=== PATIENT | female | born 1940 | race Caucasian/White ===

== ENCOUNTER 2022-09-04 10:16 | Emergency (ER) | payer MEDICARE, SELFPAY ==
[2022-09-04 10:16] VITALS: BP 134/67; PULSE 92; RESP 17; TEMP 36.6; O2SAT 96; BMI 24.5
[2022-09-04 10:23] VITALS: BMI 24.5
--- NOTE | 2022-09-04 10:24 | CT_ITS ---
FINAL REPORT TECHNIQUE: Noncontrast exam CLINICAL HISTORY: FALL, FINDINGS: There is moderate atrophy. There are chronic microvascular changes. No abnormal density is seen. Ventricles are normal. There is no hemorrhage. No mass effect is seen. Bone windows show no evidence of fracture. IMPRESSION: Moderate atrophy and chronic microvascular changes. No acute findings Reviewed, Interpreted and Dictated by Kim Thomas MD Transcribed by Tamika Robledo Authenticated and [facility]
--- NOTE | 2022-09-04 10:24 | XR_ITS ---
FINAL REPORT CLINICAL HISTORY: FALL, ARM PAIN FINDINGS: RIGHT HUMERUS 2 views were obtained. There is no acute fracture or dislocation. The joint spaces are intact. There is no soft tissue abnormality. IMPRESSION: No acute bony abnormality. Reviewed, Interpreted and Dictated by Kim Thomas MD Transcribed by Tamika Robledo Authenticated and [facility]
--- NOTE | 2022-09-04 10:24 | XR_ITS ---
FINAL REPORT CLINICAL HISTORY: FALL, LACERATION TO FOREARM, ARM PAIN FINDINGS: RIGHT FOREARM 2 views were obtained. There is no acute fracture or dislocation. The joint spaces are intact. There is no soft tissue abnormality. IMPRESSION: No acute bony abnormality. Reviewed, Interpreted and Dictated by Kim Thomas MD Transcribed by Tamika Robledo Authenticated and [facility]
[2022-09-04 10:30] VITALS: BP 134/67; PULSE 87; O2SAT 97
--- NOTE | 2022-09-04 10:41 | PC.NURSE ---
PT TO CT AT THIS TIME
[2022-09-04 10:42] LABS: Basophils % 0.5 % (0.1-2.0); Eosinophils % 0.2 % (0.1-12.0); Hematocrit 36.7 % (37.0-47.0); Hemoglobin 11.1 g/dL (12.2-16.2); Lymphocytes # 0.3 K/mm3 (0.7-4.5); Lymphocytes % 10.2 % (10-50); Mean Corpuscular HGB Conc 30.3 g/dL (31.8-35.4); Mean Corpuscular Hemoglobin 31.8 pg (27.0-31.2); Mean Corpuscular Volume 104.9 fl (81-99); Mean Platelet Volume 9.2 fl (7.4-10.4); Monocytes # 0.3 K/mm3 (0.1-1.0); Monocytes % 8.8 % (1.7-9.3); Neutrophils # 2.7 K/mm3 (1.8-7.8); Neutrophils % 80.2 % (37.0-80.0); Platelet Count 168 K/mm3 (142-424); Red Cell Distribution Width 16.5 % (11.5-17.5); White Blood Count 3.4 K/mm3 (4.8-10.8)
[2022-09-04 10:45] LABS: Alanine Aminotransferase 220 U/L (12-78); Albumin Level 3.5 g/dl (3.5-5.0); Alkaline Phosphatase 261 U/L (38-126); Anion Gap 15.8 mEq/L (5-15); Aspartate Amino Transferase 308 U/L (14-36); Bilirubin,Total 3.2 mg/dl (0.2-1.3); Blood Urea Nitrogen 25 mg/dl (7-17); Calcium 9.5 mg/dl (8.4-10.2); Carbon Dioxide 15 mmol/L (22.0-30.0); Chloride 109 mmol/L (98-107); Creatinine Clearance Estimated 35 mL/min (50-200); Estimated Glomerular Filt Rate 47 ml/min (>60); GFR (African American) 57 ML/MIN (>60); Globulin 3.6 g/dL (1.3-3.2); Glucose 147 mg/dl (74-100); Potassium 4.8 mmoL/L (3.5-5.1); Sodium 135 mmol/L (136-145); Total Protein,Serum 7.1 g/dl (6.3-8.2)
--- NOTE | 2022-09-04 10:49 | PC.NURSE ---
PT RETURNED FROM CT
--- NOTE | 2022-09-04 10:52 | PC.NURSE ---
DR. GOSS AT BEDSIDE
--- NOTE | 2022-09-04 11:04 | HMH.EDGENADL ---
Discharge Plan Disposition Patient Disposition: Home, Self-Care Condition: Fair Chief Complaint: Fall Prescriptions Prescriptions: No Action gabapentin 600 mg Tablet 600 mg PO DAILY famotidine [Pepcid] 20 mg Tablet 20 mg PO BID metoclopramide HCl [Reglan] 5 mg Tablet 5 mg PO DAILY metformin 1,000 mg Tablet 1,000 mg PO BID glimepiride 4 mg Tablet 4 mg PO DAILY digoxin 125 mcg (0.125 mg) Tablet 125 mcg PO DAILY albuterol 90 mcg/actuation Aerosol 90 mcg INHALATION DAILY duloxetine 30 mg Capsule,Delayed Release(Dr/Ec) 30 mg PO BID levothyroxine 88 mcg Capsule 88 mcg PO DAILY omeprazole magnesium 20 mg Capsule,Delayed Release(Dr/Ec) 20 mg PO BID Trelegy Ellipta 200-62.5-25 mcg Blister With Device 1 inh INHALATION DAILY magnesium oxide 400 mg magnesium Capsule 400 mg PO BID Activity Restrictions/Add. Instructions Additional Instructions/Restrictions: Decreased dosage of metformin to 500 mg in the evening only. Do not take glipizide, do not take Tresiba. You will receive a call from [facility] for surgery clinic appointment this . If your appointment with Dr. Solorio conflicts with the surgery clinic appointment, please reschedule with Dr. Acosta for a different time this week. Clinical Impressions Clinical Impression: Hypoglycemia, Bile duct obstruction, Pancreatic duct obstruction, Dilated gallbladder Instructions Patient Instructions: DI for Hypoglycemia Discharge ED Provider: John Valentin General Adult HPI General Chief complaint: Fall Stated complaint: FALL Time Seen by Provider: 09/04/22 10:47 History of Present Illness HPI narrative: The patient is brought in by ambulance. History obtained from patient and family. Patient states that she passed out trying to get out of bed. Family states they found her unresponsive on the floor by her bed this morning. She was able to nod her head but could not move or get up. EMS was called and found her blood sugar to be 25 and she was administered D50 with improvement in her condition. She currently says that she has some soreness in her right arm, apparently from the fall, but denies any other current complaints except that she has not felt well for 6 to 7 months. Family states that she has fallen several times, has been confused and has been declining in function for the past couple of months since . She has been hospitalized at [facility] twice because of this. They said the last time she was in her blood sugar was very high and it took all day to get it down. They state that she had been having problems breathing and had pneumonia and was treated with steroids and it was felt her blood sugar was elevated because of that. They state she previously has been on Tresiba injections, but they did not know whether she was actually using it. Her primary care provider changed her to Lantus, but she had an allergic reaction to it. Primary care provider told him to go back to using Tresiba. They started her back on it 2 days ago. They have not been checking her blood sugar. Family states that the patient had been living on her own but has moved in with them recently because of her daughter declining condition. 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 Related Data Home Medications Medication Instructions Recorded Confirmed albuterol 90 mcg/actuation aerosol 90 mcg inhalation DAILY Breathing 09/04/22 09/04/22 inhaler problems digoxin 125 mcg (0.125 mg) tablet 125 mcg PO DAILY Heart rhythm 09/04/22 09/04/22 duloxetine 30 mg capsule,delayed 30 mg PO BID Depression 09/04/22 09/04/22 release famotidine 20 mg tablet (Pepcid) 20 mg PO BID GERD 09/04/22 09/04/22 fluticasone fur. 200 mcg-umeclid 1 inh inhalation DAILY Breathing 09/04/22 09/04/22 62.5 mcg-vilant 25 mcg problems inhalat.powder
[2022-09-04 11:08] LABS: Troponin I < 0.01 ng/ml (0.00-0.034)
[2022-09-04 11:12] LABS: Magnesium 1.8 mg/dl (1.6-2.3)
--- NOTE | 2022-09-04 11:29 | XR_ITS ---
FINAL REPORT CLINICAL HISTORY: syncope FINDINGS: PORTABLE CHEST The heart is normal in size. The mediastinum is unremarkable. There are changes of emphysema. There is old calcified granulomatous disease. There is no pneumothorax. IMPRESSION: No acute process. Reviewed, Interpreted and Dictated by Kim Thomas MD Transcribed by Tamika Robledo Authenticated and [facility]
[2022-09-04 11:32] VITALS: BP 140/74; PULSE 90; O2SAT 97
--- NOTE | 2022-09-04 11:39 | PC.NURSE ---
PT ASSISTED TO BSC FOR UA COLLECTION. ATTENDS CHANGED AND ROXANE-CARE PROVIDED. PT AMBULATED WITH ASSIST X 1
--- NOTE | 2022-09-04 11:49 | PC.NURSE ---
XR AT BEDSIDE
[2022-09-04 11:51] LABS: Microscopic, Urine URINE MICROSCOPIC (MICROSCOPIC)
[2022-09-04 11:56] LABS: Appearance,Urine CLEAR (Clear); Blood, Urine Negative (Negative); Color,Urine AMBER (Yellow); Glucose,Urine (UA) TRACE (Negative); Ketones,Urine Negative (Negative); Leukocyte Esterase,Urine TRACE (Negative); Nitrate,Urine Negative (Negative); Protein,Urine 2+ (Negative); Specific Gravity, Urine 1.025 (1.005-1.030); Urobilinogen,Urine 0.2 EU/dl (0.2)
--- NOTE | 2022-09-04 11:58 | PC.NURSE ---
DR. GOSS SPEAKING WITH PT'S PCP
--- NOTE | 2022-09-04 11:58 | PC.NURSE ---
Called Dr Solorio in [facility] for Dr Valentin to consult on patient.
[2022-09-04 12:00] VITALS: BP 142/79; PULSE 84; O2SAT 98
[2022-09-04 12:02] LABS: Bilirubin,Urine 2+ (Negative)
--- NOTE | 2022-09-04 12:04 | CT_ITS ---
FINAL REPORT TECHNIQUE: Oral and IV contrast enhanced exam. Axial images through the abdomen and pelvis were performed. This study was performed with techniques to keep radiation doses as low as reasonably achievable (ALARA). Individualized dose reduction techniques using automated exposure control or adjustment of mA and/or kV according to the patient's size were employed. CLINICAL HISTORY: elev LFTs FINDINGS: Abdomen: Lung bases are clear. There is severe intrahepatic and extrahepatic biliary duct dilatation with abrupt truncation of the dilated common bile duct within the pancreatic head. There is severe pancreatic ductal dilatation. The gallbladder is severely distended. There is minimal ascites in the upper abdomen. There is left adrenal enlargement, probably hyperplasia. There is a right renal cyst. The remaining solid organs are unremarkable. There is mild mesenteric adenopathy. A right sided ostomy is present. No bowel obstruction. Pelvis: The appendix is not visualized. Pelvic bowel loops are unremarkable. The uterus is unremarkable. There is a trace amount of free fluid. There is soft tissue fullness in the rectum which could represent a mass. IMPRESSION: High-grade biliary and pancreatic ductal obstruction occurring at the level of pancreatic head. No well-defined mass is seen although malignant etiology is suspected. Consider MRCP. Minimal ascites and mild adenopathy. Soft tissue fullness in the rectum raising question of a mass. Reviewed, Interpreted and Dictated by Kim Thomas MD Transcribed by Tamika Robledo Authenticated and [facility]
--- NOTE | 2022-09-04 12:05 | US_ITS ---
FINAL REPORT TECHNIQUE: Multiple transverse and longitudinal images CLINICAL HISTORY: elev LFTs FINDINGS: Severe intrahepatic and extrahepatic biliary duct dilatation extending to the level of the pancreas. Distended gallbladder. Probable cholelithiasis. Trace amount of ascites in the upper abdomen. Known pancreatic duct dilatation not well demonstrated on this exam. IMPRESSION: High-grade biliary obstruction with distended gallbladder. Recommend MRCP. Reviewed, Interpreted and Dictated by Kim Thomas MD Transcribed by Juanito Cotton Authenticated and . [facility]
[2022-09-04 12:10] LABS: Amorphous Sediment,Urine 1+ /lpf; Bacteria,Urine Trace /lpf; RBC,Urine Occasional #/hpf (0-3)
--- NOTE | 2022-09-04 12:23 | PC.NURSE ---
DR. GOSS SPEAKING WITH FAMILY ABOUT POC
--- NOTE | 2022-09-04 12:23 | PC.NURSE ---
PT TO CT AT THIS TIME
--- NOTE | 2022-09-04 12:29 | PC.NURSE ---
PT RETURNED FROM CT. U/S AT BEDSIDE
--- NOTE | 2022-09-04 12:51 | PC.NURSE ---
ultrasound staff gave ER verbal report
[2022-09-04 13:05] LABS: Lipase 748 U/L (23-300)
--- NOTE | 2022-09-04 13:06 | PC.NURSE ---
Faisal from lab called critical on patient. Lipase 748, repeated and verified.
--- NOTE | 2022-09-04 13:34 | PC.NURSE ---
FAMILY AND PT UPDATED AT THIS TIME
--- NOTE | 2022-09-04 13:39 | PC.NURSE ---
DR GOSS SPEAKING WITH DR. HEARD
--- NOTE | 2022-09-04 13:50 | PC.NURSE ---
[facility] CALLED AT THIS TIME FOR CONSULT, IMAGES POWER SHARED TO [facility]
--- NOTE | 2022-09-04 14:01 | PC.NURSE ---
DR. GOSS SPEAKING WITH [facility]
[2022-09-04 14:26] LABS: INR 0.97 (0.9-1.1); Prothrombin Time 10.5 seconds (10.1-12.5)
[2022-09-04 14:45] LABS: Troponin I < 0.01 ng/ml (0.00-0.034)
[2022-09-04 15:10] VITALS: BP 142/79; PULSE 80; RESP 18; TEMP 36.7; O2SAT 95
== END 2022-09-04 15:10 | disposition home or self-care (01) ==
PROVIDERS: Emergency Provider Emergency Medicine; PCP Family Medicine
DX: E16.2 Hypoglycemia, unspecified (principal); K83.1 Obstruction of bile duct; K82.8 Other specified diseases of gallbladder; M79.601 Pain in right arm; W19.XXXA Unspecified fall, initial encounter
CPT/HCPCS: 36415; 70450; 71045; 73060; 73090; 74177; 76705; 80053; 80162; 81001; 83690; 83735; 84484; 85025; 85610; 99285; Q9967

== ENCOUNTER 2022-09-29 15:10 | Emergency (ER) | payer MEDICARE, SELFPAY ==
[2022-09-29 15:59] VITALS: BMI 17.8
[2022-09-29 16:00] VITALS: BP 146/78; PULSE 92; RESP 18; TEMP 37; O2SAT 96; BMI 17.7
[2022-09-29 16:16] LABS: Basophils % 0.8 % (0.1-2.0); Eosinophils % 0.5 % (0.1-12.0); Hemoglobin 10.8 g/dL (12.2-16.2); Lymphocytes # 1.1 K/mm3 (0.7-4.5); Lymphocytes % 25.6 % (10-50); Mean Corpuscular HGB Conc 31.9 g/dL (31.8-35.4); Mean Corpuscular Hemoglobin 30.8 pg (27.0-31.2); Mean Corpuscular Volume 96.4 fl (81-99); Mean Platelet Volume 8.9 fl (7.4-10.4); Monocytes # 0.4 K/mm3 (0.1-1.0); Monocytes % 9.2 % (1.7-9.3); Neutrophils # 2.8 K/mm3 (1.8-7.8); Platelet Count 170 K/mm3 (142-424); Red Blood Count 3.52 M/mm3 (4.20-5.40); Red Cell Distribution Width 14.9 % (11.5-17.5); White Blood Count 4.4 K/mm3 (4.8-10.8)
[2022-09-29 16:18] LABS: Alanine Aminotransferase 19 U/L (12-78); Albumin Level 2.8 g/dl (3.5-5.0); Albumin/Globulin Ratio 0.9 (1.1-1.8); Alkaline Phosphatase 119 U/L (38-126); Anion Gap 12.6 mEq/L (5-15); Aspartate Amino Transferase 32 U/L (14-36); Bilirubin,Total 0.8 mg/dl (0.2-1.3); Blood Urea Nitrogen 14 mg/dl (7-17); Calcium 8.2 mg/dl (8.4-10.2); Carbon Dioxide 20 mmol/L (22.0-30.0); Chloride 98 mmol/L (98-107); Creatinine Clearance Estimated 31 mL/min (50-200); Estimated Glomerular Filt Rate 60 ml/min (>60); GFR (African American) 72 ML/MIN (>60); Globulin 3.1 g/dL (1.3-3.2); Glucose 386 mg/dl (74-100); Potassium 4.6 mmoL/L (3.5-5.1); Sodium 126 mmol/L (136-145); Total Protein,Serum 5.9 g/dl (6.3-8.2)
--- NOTE | 2022-09-29 16:24 | HMH.EDGIBL ---
Discharge Plan Disposition Patient Disposition: Home, Self-Care Condition: Fair Prescriptions Prescriptions: No Action gabapentin 600 mg Tablet 600 mg PO DAILY famotidine [Pepcid] 20 mg Tablet 20 mg PO BID metoclopramide HCl [Reglan] 5 mg Tablet 5 mg PO DAILY metformin 1,000 mg Tablet 1,000 mg PO BID glimepiride 4 mg Tablet 4 mg PO DAILY digoxin 125 mcg (0.125 mg) Tablet 125 mcg PO DAILY albuterol 90 mcg/actuation Aerosol 90 mcg INHALATION DAILY duloxetine 30 mg Capsule,Delayed Release(Dr/Ec) 30 mg PO BID levothyroxine 88 mcg Capsule 88 mcg PO DAILY omeprazole magnesium 20 mg Capsule,Delayed Release(Dr/Ec) 20 mg PO BID Trelegy Ellipta 200-62.5-25 mcg Blister With Device 1 inh INHALATION DAILY magnesium oxide 400 mg magnesium Capsule 400 mg PO BID Referrals Follow up/Referrals: Gladys Solorio DO [Primary Care Provider] - See instructions Activity Restrictions/Add. Instructions Additional Instructions/Restrictions: Please return immediately to the emergency department if your condition worsens in any way. Follow-up with your primary care doctor on Saturday as already scheduled and ask for a repeat hemoglobin/hematocrit to be drawn for comparison to today. Clinical Impressions Clinical Impression: GI (gastrointestinal bleed) Instructions Patient Instructions: DI for Gastrointestinal Bleeding Discharge ED Provider: Melodie Ko GI Bleed HPI General Chief complaint: GI Bleed Stated complaint: colostomy , stools black and blood Time Seen by Provider: 09/29/22 16:25 Mode of Arrival: Wheelchair Source of Information: Relative Limitations: No Limitations Description of Symptoms (Recalled from ER Triage Doc. by RN): pt brought in with reports of black stool with red liquid in ostomy bag. stool changed consistency and color this am. pt does have cancer and is in the process of having it worked up. pt has had ostomy bag for 10 years. History of Present Illness HPI Narrative: The patient presents to the emergency department accompanied by the because she had some dark-colored stool in her colostomy bag. She has a history of colon cancer and had the colostomy placed about 10 years ago. Currently the patient has pancreatic cancer and is scheduled for radiation therapy. She does have a biliary stent. Cording to the family the patient vomited earlier today. There is no recent history of fever or bloody emesis. Related Data Home Medications Medication Instructions Recorded Confirmed albuterol 90 mcg/actuation aerosol 90 mcg inhalation DAILY Breathing 09/04/22 09/04/22 inhaler problems digoxin 125 mcg (0.125 mg) tablet 125 mcg PO DAILY Heart rhythm 09/04/22 09/29/22 duloxetine 30 mg capsule,delayed 30 mg PO BID Depression 09/04/22 09/29/22 release famotidine 20 mg tablet (Pepcid) 20 mg PO BID GERD 09/04/22 09/29/22 fluticasone fur. 200 mcg-umeclid 1 inh inhalation DAILY Breathing 09/04/22 09/29/22 62.5 mcg-vilant 25 mcg problems inhalat.powder (Trelegy Ellipta) gabapentin 600 mg tablet 600 mg PO DAILY Pain 09/04/22 09/29/22 glimepiride 4 mg tablet 4 mg PO DAILY Diabetes 09/04/22 09/04/22 levothyroxine 88 mcg capsule 88 mcg PO DAILY THYROID 09/04/22 09/29/22 magnesium oxide 400 mg PO BID Supplement 09/04/22 09/29/22 metformin 1,000 mg tablet 1,000 mg PO BID Diabetes 09/04/22 09/29/22 metoclopramide HCl 5 mg tablet 5 mg PO DAILY GERD 09/04/22 09/29/22 (Reglan) omeprazole magnesium 20 mg 20 mg PO BID GERD 09/04/22 09/29/22 capsule,delayed release Allergies Allergy/AdvReac Type Severity Reaction Status Date / Time amoxicillin Allergy Verified 09/29/22 16:07 Penicillins Allergy Verified 09/29/22 16:07 [facility] Disclaimer: The information contained in this section may have been updated after the patient was seen, as this information can be updated by other users. Social History Smoking Status: Former smoker
--- NOTE | 2022-09-29 16:28 | XR_ITS ---
PROCEDURE INFORMATION: Exam: XR Complete Acute Abdomen Series Including Chest Exam date and time: 09/29/2022 4:51 PM Age: 82 years old Clinical indication: Vomiting; Patient HX: She had some dark-colored stool in her colostomy bag. She has a history of colon cancer and had the colostomy placed about 10 years ago. Currently the patient has pancreatic cancer and is scheduled for radiation therapy; Additional info: Vomiting, concern for gi bleed had dark colored stool in colostomy bag TECHNIQUE: Imaging protocol: Radiologic exam. Complete acute abdomen series, including 2 or more views of the abdomen and a single view chest. COMPARISON: CT ABDOMEN PELVIS W CON 09/04/2022 12:23 PM FINDINGS: Lungs: There are scattered chronic granulomatous changes throughout the lung aranda, unchanged. Minor platelike atelectasis left mid lung zone. Pleural spaces: Normal. No pleural effusions. No pneumothorax. Heart/Mediastinum: Normal. No cardiomegaly. Gastrointestinal tract: See Intraperitoneal space finding. Intraperitoneal space: Abdominal cavity is rather gasless limiting assessment of bowel gas pattern for obstruction. There is no free air identified. Bones/joints: Normal. No acute fracture. Soft tissues: Normal. IMPRESSION: Limited assessment of bowel gas pattern due to gasless abdomen appearance. Consider follow-up CT exam of the abdomen pelvis for further assessment.
[2022-09-29 16:30] VITALS: BP 138/71; PULSE 91; RESP 20; O2SAT 96
[2022-09-29 16:46] LABS: Occult Blood,Stool Positive (Negative)
[2022-09-29 17:00] VITALS: BP 132/75; PULSE 91; RESP 18; O2SAT 93
[2022-09-29 17:30] VITALS: BP 126/62; PULSE 92; RESP 20
[2022-09-29 18:00] VITALS: BP 138/80; PULSE 91; RESP 18; TEMP 36.7; O2SAT 95
--- NOTE | 2022-09-29 18:18 | PC.NURSE ---
Dr Ko at bedside
--- NOTE | 2022-09-29 18:19 | PC.NURSE ---
rounded on pt at this time, pt used bedpan. pt resting with family at bedside.
[2022-09-29 18:58] VITALS: BP 138/80; PULSE 90; RESP 15; TEMP 37.1
== END 2022-09-29 18:59 | disposition home or self-care (01) ==
PROVIDERS: Emergency Provider Emergency Medicine; PCP Family Medicine
DX: K92.2 Gastrointestinal hemorrhage, unspecified (principal); Z93.3 Colostomy status; Z85.038 Personal history of other malignant neoplasm of large intestine; C25.9 Malignant neoplasm of pancreas, unspecified; Z96.89 Presence of other specified functional implants; Z87.891 Personal history of nicotine dependence
CPT/HCPCS: 74021; 80053; 82272; 85025; 99285; G0328